=== PATIENT | female | born 1940 | race Caucasian/White ===

== ENCOUNTER 2019-07-22 14:04 | Outpatient (CLI) | payer MEDICARE, SELFPAY ==
--- NOTE | 2019-07-22 14:13 | CT_ITS ---
WS: [id number] CT CHEST WITHOUT INTRAVENOUS CONTRAST HISTORY: Chest pain with lung nodules. TECHNIQUE: Contiguous 5 mm axial imaging performed on the thorax. Coronal and sagittal reformats are submitted. All CT scans at [facility] use at least one of these dose optimization techniq ues: automated exposure control; mA and/or kV adjustment per patient size (includes targeted exams wh ere dose is matched to clinical indication); or iterative reconstruction. CONTRAST: None DLP: 569.01 mGycm COMPARISON: 01/23/2019 and 06/27/2018 Lungs and central airway: Marked pulmonary hyperexpansion. Biapical pleural and subpleural opacificat ions and scarring are stable. RIGHT upper lobe pleural-based opacification measures 2.1 x 1.0 cm and is similar to 01/15/2019 but has slightly increased in size since 12/06/2016. Pleura: Normal. No pleural effusion. Heart and pericardium: Normal size heart. No pericardial effusion. Mediastinum and ramin: No significant adenopathy is identified. Limited without IV contrast. Vessels: Mild atherosclerosis aorta. Pulmonary artery size is equal to the aorta. Chest wall and lower neck: No soft tissue masses. Upper abdomen: Hepatic and splenic granulomata. Limited evaluation without IV contrast. Osseous structures: T5 mild anterior wedging similar to prior studies. No osteoblastic or osteolytic bone disease. CT/CT chest wo con [id number] IMPRESSION: 1. Slight increase in size of the pleural-based opacification in the RIGHT upp er thorax. Now measuring 2.1 x 1.0 cm. This pleural-based opacification has bee n present over multiple years but only recently slightly increased in size. Rec ommend additional [address] follow-up or PET/CT imaging for further eval uation. 2. Emphysema and chronic upper lobe opacifications and pleural thickening are stable. 3. Hepatic and splenic granulomata. 4. Chronic emphysema.
== END 2019-07-22 14:05 | disposition home or self-care (01) ==
LOC: RADWPI 14:10
PROVIDERS: Family Provider Family Medicine; PCP Family Medicine; Visit Provider Family Medicine
DX: J43.9 Emphysema, unspecified (principal); K75.3 Granulomatous hepatitis, not elsewhere classified; R07.89 Other chest pain; R91.8 Other nonspecific abnormal finding of lung field
CPT/HCPCS: 71250

== ENCOUNTER 2019-07-25 08:09 | Outpatient (CLI) | payer MEDICARE, SELFPAY ==
[2019-07-25 08:36] VITALS: BMI 19.6
--- NOTE | 2019-07-25 08:47 | ECG_ITS ---
NAME OF STUDY: EXERCISE SESTAMIBI STRESS TEST INDICATION: Chest Pain Baseline blood pressure of 163/79 mm Hg, heart rate 82 beats per minute. EKG showed normal sinus rhythm, normal axis with possible old anteroseptal infarct. The patient exercised for 3 minutes 31 seconds on a standard Naveed protocol. Patient attained a maximum heart rate of 149 beats per minute(107 % of the maximum predicted heart rate) with a blood pressure at the peak exercise of 211/83 mm Hg. The EKG at the peak exercise revealed 2 to [address] segment depression in inferolateral leads. Patient did not have any chest pain or any significant arrhythmia with the exercise. During the recovery phase, there were no new changes. ST segment depression persist 6 minutes into recovery. Blood pressure at the end of the recovery phase was 174/83 mm Hg with a heart rate of 87 beats per minute. CONCLUSION: 1. Positive EKG response to treadmill exercise with 2 to [address] segment depression in inferolateral leads. 2. No exercise-induced chest pain or cardiac arrhythmia. 3. Fair exercise tolerance, attained a maximum of 4.6 METs. 4. Baseline hypertension blood pressure with hypertensive response to exercise. 5. Perfusion scan will be documented separately. Electronically Signed On 07-25-2019 16:50:43 [facility] by Tracey Hickman M.D. [email or web address]
--- NOTE | 2019-07-25 08:47 | NMCV_ITS ---
NM milad perf SPECT r/s* [id number] Georgette Ahn Age: 79 Gender: F : 1940 Exam Date: 07/25/2019 09:18 Ordering Phys: Néstor Morejon MD Technologist: UMM Hernandez Exam Location: [facility] Indications: CHEST PAIN STRESS TEST Please see separate stress test report in [facility] for full findings IMAGE PROTOCOL Rest/Stress 1 Exercise Day Radiopharmaceutical Dose (mCi) Administration Site Administered by Rest: Tc-99m 10.5 IV UMM Burton Sestamibi Stress:Tc-99m 32.5 IV UMM Burton Sestamibi Rest: 25-Jul-2019 60 Discovery 630 Stress: 25-Jul-2019 30 Discovery 630 Radiopharmaceutical was injected at 100% maximum heart rate. Images obtained in supine and prone position. SPECT RESULTS Technical Quality: Excellent Raw Data Analysis: Normal Image Corrections: No attenuation or motion correction applied Summed Stress Score: 0 Summed Rest Score: 0 Summed Difference Score: 0 PERFUSION FINDINGS Fairly uniform myocardial tracer uptake. No significant perfusion abnormalities. FUNCTIONAL RESULTS (calculated via Gated SPECT) Stress Image LV EF (%): 71 Stress EDV (mL):63 TID: 1.14 Stress ESV (mL):18 FUNCTIONAL FINDINGS: Segmental wall motion analysis revealing no gross wall motion normalities IMPRESSIONS #1. Unremarkable myocardial perfusion imaging #2. Normal LV ejection fraction 71%. #3. LV wall motion analysis revealing no gross wall motion normalities. #4. Normal LV volume No significant coronary ischemia, based on the above findings Dr Quentin Shaw MD FACC (Electronically Signed) Final Date: 25 July 2019 13:33 S
[2019-07-25 10:02] VITALS: BP 191/86; PULSE 100
== END 2019-07-25 08:10 | disposition home or self-care (01) ==
LOC: CDL 08:11
PROVIDERS: Family Provider Family Medicine; PCP Family Medicine; Visit Provider Family Medicine
DX: R07.89 Other chest pain (principal)
CPT/HCPCS: 78452; 93017; A9500

== ENCOUNTER 2020-07-28 11:12 | Emergency (ER) | payer MEDICARE, SELFPAY ==
--- NOTE | 2020-07-28 | CTR_ITS ---
PROCEDURE INFORMATION: Exam: CT Angiography Chest With Contrast Exam date and time: 07/28/2020 3:23 PM Age: 80 years old Clinical indication: Abnormal findings; Abnormal diagnostic tests; Elevated d-dimer; Fever and shortness of breath; Additional info: Covid + / high d-dimer TECHNIQUE: Imaging protocol: Computed tomographic angiography of the chest with contrast. 3D rendering (Not supervised by radiologist): MIP and/or 3D reconstructed images were created by the technologist. Total images: 814 Radiation optimization: All CT scans at this facility use at least one of these dose optimization techniques: automated exposure control; mA and/or kV adjustment per patient size (includes targeted exams where dose is matched to clinical indication); or iterative reconstruction. Contrast material: OMNI 350; Contrast volume: 68 ml; Contrast route: INTRAVENOUS (IV); COMPARISON: CT chest [facility] [id number] 07/22/2019 2:41 PM RADIATION DOSE METRICS: Total DLP (mGy-cm): 395.72 FINDINGS: Pulmonary arteries: No visible evidence of pulmonary embolism/pulmonary arterial thrombus. Aorta: The thoracic aorta is nonaneurysmal. No visible intimal flap or dissection. Moderate arterial sclerotic disease. Lungs: Bilateral, predominantly peripheral, patches of ground-glass interstitial lung disease with evidence of early consolidation of active pneumonitis/pneumonia. Pattern would be consistent with Covid-19 pneumonitis/pneumonia. Subsegmental compressive atelectasis left lower lobe. Pleural spaces: Moderate volume left pleural effusion. Heart: Cardiac size upper limits of normal. No visible pericardial effusion. Left ventricular prominence. Mild coronary artery disease. Lymph nodes: No visible active mediastinal or hilar lymphadenopathy. Calcified hilar and mediastinal complexes of antecedent granulomatous disease. Bones/joints: No visible active or acute osseous pathology. Mild scoliotic curvature of the spine. Age-appropriate degenerative disease of the spine. Soft tissues: Unremarkable for age. CT/CT angio chest PE protcl [id number] IMPRESSION: 1. No visible evidence of pulmonary embolism/pulmonary arterial thrombus. 2. Moderate volume left pleural effusion. 3. Bilateral, predominantly peripheral, patches of ground-glass interstitial lung disease with evidence of early consolidation of active pneumonitis/pneumonia. Pattern would be consistent with Covid-19 pneumonitis/pneumonia. 4. Subsegmental compressive atelectasis left lower lobe. Radiation Dose CTDIVOL = (mGy): DLP = 395.72 (mGy-cm)
[2020-07-28 11:38] VITALS: BP 146/66; PULSE 116; RESP 18; TEMP 37.2; O2SAT 95; BMI 20.3
--- NOTE | 2020-07-28 12:29 | XRR_ITS ---
PROCEDURE INFORMATION: Exam: XR Chest Exam date and time: 07/28/2020 12:52 PM Age: 80 years old Clinical indication: Condition or disease; Lung condition and disease; Pleural effusion; Other: Not specified; Fever and shortness of breath; Additional info: SOB TECHNIQUE: Imaging protocol: XR of the chest Views: 1 view. COMPARISON: CR XR chest 2V* [id number] 07/21/2020 10:26 AM FINDINGS: Lungs: COPD, interstitial prominence, and asymmetric left-sided airspace disease. Pleural spaces: Interval worsening in left pleural effusion. Heart/Mediastinum: Obscuration of the inferior left heart border. Bones/joints: Osteopenia, degenerative change, scoliosis. Costochondral calcifications. XR/XR chest 1V portable [id number] IMPRESSION: 1. COPD, interstitial prominence, and asymmetric left-sided airspace disease. 2. Interval worsening in left pleural effusion.
[2020-07-28 13:00] LABS: Hematocrit 39.3 % (37.0-47.0); Hemoglobin 12.5 g/dL (11.5-15.3); Lymphocytes # 0.4 10^3/uL (0.8-4.8); Lymphocytes % 9.7 %; Mean Corpuscular HGB Conc 31.8 g/dL (30.0-36.0); Mean Corpuscular Hemoglobin 30.5 pg (28.0-34.0); Mean Corpuscular Volume 95.9 fL (81-99); Mean Platelet Volume 9.7 fL (7.4-10.4); Monocytes # 0.8 10^3/uL (0.2-0.9); Neutrophils % 68.1 %; Nucleated Red Blood Cells % 0 %; Platelet Count 453 10^3/cmm (130-400); Red Cell Distribution Width 13.3 % (12.1-15.1); White Blood Count 4.1 10^3/uL (4.0-10.0)
[2020-07-28 13:20] LABS: D Dimer 5.13 ug/mIFEU (0-0.59)
[2020-07-28 13:24] LABS: Lactate (Lactic Acid level) 1.2 mmol/L (0.5-2.2)
[2020-07-28 13:33] LABS: Procalcitonin 0.05 ng/mL (0-0.5)
--- NOTE | 2020-07-28 13:36 | CT_ITS ---
WS: [id number] CT ABDOMEN AND PELVIS WITH CONTRAST HISTORY: sob, LEFT lower quadrant pain. TECHNIQUE: Imaging performed of the abdomen and pelvis with IV contrast. Single phase imaging of the abdomen. Coronal and sagittal reformats are submitted. All CT scans at [facility] use at least one of these dose optimization techniques: automated exposure control; mA and/or kV adjustment per patient size (includes targeted exams where dose is matched to clinical indication); or iterativ e reconstruction. IV CONTRAST: Omnipaque 300; 95 mL IV. Oral contrast: No DLP: 828.33 mGy.cm COMPARISON: None available. Lower thorax: Chronic emphysematous changes at the lung bases with minimal scattered opacifications. Small layering LEFT pleural effusion. Mildly enlarged heart. No hiatal hernia. Liver/biliary system: Hepatic granulomata. No mass or bile duct dilatation. Gallbladder: Normal. No gallstones or wall thickening. No pericholecystic fluid. Pancreas: Poorly visualized pancreas. Spleen: Granulomata. Normal size. Adrenal glands: Normal. Right kidney: Normal size kidney with an extrarenal pelvis. No mass or obstruction. Left kidney: Normal size kidney with a small extrarenal pelvis. No mass or obstruction. Aorta: Mild atherosclerosis with no aneurysm. Lymphadenopathy: No adenopathy identified. There is significant motion artifact obscuring fine detail . Free fluid: None. GI tract: Diffuse increased air throughout the GI tract. Mild constipation. There is significant cj on artifact limited evaluation of the mucosa. The appendix is not definitely visualized. There are nu merous diverticula in the sigmoid colon. Abdominal wall: Unremarkable abdominal wall. No hernia. Pelvis: No free fluid. Limited by motion. Well-distended urinary bladder. Bones: Bilateral hip joint arthritis. Moderate degenerative changes throughout the spine. CT/CT abdomen pelvis w con* [id number] IMPRESSION: 1. Study is compromised by motion artifact. 2. Small layering LEFT pleural effusion. 3. Sigmoid diverticulosis without evidence for acute diverticulitis. 4. Increased amount of air within the GI tract. Mild gastroenteritis should be considered.
[2020-07-28 13:44] LABS: Alanine Aminotransferase 21 U/L (0-33); Albumin Level 3.9 g/dL (3.5-5.2); Alkaline Phosphatase 78 IU/L (35-105); Anion Gap 14.1 (5-19); Aspartate Amino Transferase 22 U/L (0-32); Blood Urea Nitrogen 7 mg/dL (8-23); C Reactive Protein 37.9 mg/L (0.0-4.9); Calcium 9.2 mg/dL (8.5-10.5); Carbon Dioxide 30 mmol/L (22-29); Chloride 91 mmol/L (98-107); Globulin 3.8 g/dL (1.3-4.6); Glucose 105 mg/dL (65-115); Osmolality Calculated 270 mOsm/kg (285-295); Potassium 4.1 mmol/L (3.5-5.1); Sodium 131 mmol/L (136-145); Total Bilirubin 0.2 mg/dL (0.15-1.2); Total Protein 7.7 g/dL (6.6-8.7)
[2020-07-28 14:02] LABS: Influenza A by IFA Negative (Negative); Influenza B by IFA Negative (Negative); SARS Covid-2 Antigen Positive (Negative)
[2020-07-28] MEDS: iohexol 300 mg/mL 100 mL Btl IV (14:05)
[2020-07-28 14:25] VITALS: BP 110/59; PULSE 102; RESP 22; O2SAT 96
[2020-07-28 14:28] LABS: Add Urine Microscopic? NO
[2020-07-28 15:11] LABS: Bilirubin Urine Neg (Negative); Blood Urine Neg (Negative); Glucose Urine UA Norm (Normal); Ketones Urine Negative (Negative); Leukocyte Esterase Urine Negative (Negative); Nitrate Urine Negative (Negative); Protein Urine Neg (Negative); Specific Gravity, Urine 1.015 (1.005-1.030); Sulfosalicylic Acid Urine Negative (Negative); Urine Appearance Clear (CLEAR); Urine Color Yellow (Yellow); Urobilinogen Urine Norm (Negative); pH Urine 8 (5-7)
[2020-07-28] MEDS: iohexol 350 mg/mL 100 mL Btl IV (15:55)
--- NOTE | 2020-07-28 15:55 | W.ED.FEVER ---
HPI - Fever General: Chief Complaint: Fever Stated Complaint: fever/plural effusion/ Lt side pain Time Seen by Provider: 07/28/20 11:50 Source: patient and family Mode of arrival: ambulatory Limitations: no limitations History of Present Illness: HPI Narrative: This is an 80-year-old female patient who was recently admitted about 2-1/2 weeks ago to [facility] for pneumonia and pleural effusion. She was admitted for about 5 days and was treated with antibiotics. She also follows with the cocoa milling machine operator. Today she woke up with a fever 101 and has generalized body aches so she was advised to come to the emergency department for evaluation. She admits to some shortness of breath. MD elicited complaint: fever Onset (ago): hour(s) Associated symptoms: Reports short of breath; Deny abdominal pain, flank pain, chills, chest pain, confusion, cough, diarrhea, dysuria, extremity pain, headache(s), myalgias, nasal congestion, nausea, night sweats, rash, rhinorrhea, sinus pain, stiffness, sore throat, vaginal discharge, vomiting or weight loss Review of Systems General: Reports: 10 or more systems reviewed and unremarkable except in HPI and below Const: Denies: chills or night sweats Eyes: Denies: change in vision or blurry vision ENMT: Denies: nasal congestion or sinus pain Card: Denies: chest pain Resp: Denies: dyspnea, productive cough or non-productive cough GI: Denies: abdominal pain, nausea, vomiting or diarrhea : Denies: flank pain, dysuria or vaginal discharge Musc: Denies: extremity pain Skin/Breast: Denies: rash, pruritus or erythema Neuro: Denies: headache(s) or confusion Endo: Denies: polyuria, polydipsia or tired all the time [facility] ED PFSH: Social History Smoking and tobacco status: former smoker Quit status (tobacco): has quit using tobacco Physical Exam Const: COMMON NORMALS: no acute distress, average body habitus, patient oriented x3, no limitations, healthy appearing, alert and well nourished HENMT: COMMON NORMALS: normocephalic, atraumatic and moist oral mucous membranes HEAD & SCALP: normocephalic and atraumatic Neck/C-Spine: COMMON NORMALS: no meningeal signs and no JVD Chest: COMMONS NORMALS: normal inspection of the chest and normal palpation of entire chest wall Resp: COMMON NORMALS: normal respiratory effort, No retractions, No use of accessory muscles and percussion normal AUSCULTATION: rales on the left and diminished lung sounds on the left PERCUSSION: percussion normal Cardio: COMMON NORMALS: no JVD, regular rate, regular rhythm, S1 normal heart sound present, S2 normal heart sound present, No gallops present (Cardio), No clicks present (Cardio), No rub (Cardio) and Peripheral pulses 2+ throughout RATE: regular rate RHYTHM: regular rhythm HEART SOUNDS: S1 normal heart sound present, S2 normal heart sound present and Murmur heart sound present PERIPHERAL PULSES: Peripheral pulses 2+ throughout GI: COMMON NORMALS: Normal to inspection, nondistended, normoactive bowel sounds present, Soft to palpation, non-tender, No hepatosplenomegaly present, no masses and no bruits PALPATION: Yes Soft to palpation and Yes No hepatosplenomegaly present Extremity: COMMON NORMALS: normal to inspection, full ROM, capillary refill normal, no calf tenderness and no pedal edema Neuro: COMMON NORMALS: patient oriented x3 SENSORIUM/ORIENTATION: Yes alert MENINGEAL SIGNS: Yes no meningeal signs Skin: COMMON NORMALS: no rashes or lesions noted, no wounds, turgor normal, no jaundice, no petechiae and no mottling GENERAL SKIN EXAM: no rashes or lesions noted and turgor normal Course Reevaluation(s): Reevaluation #1: Discussed her lab and imaging findings with her, she tested positive for COVID-19, D-dimer significantly elevated but a CTA of her lungs was negative for PE. She does have left-sided pleural effusion and CT scan findings consistent with COVID-19. I discussed monoclonal antibody infusion with her, she recently was placed on oxygen and she increased her oxygen flow rate to 2 L/min. She is currently on 1 L/min but I discussed the risk and benefits of the monoclonal antibody infusion with her. At this time she decided against it. We will discharge her home with a prescription for dexamethasone. She voiced understanding and is in agreement with the plan. She will follow-up with her primary care provider and her cocoa milling machine operator. Time: 16:38 Vital Signs: Vital signs: Vital Signs Temperature 99.0 F 07/28/20 11:38 Pulse Rate 96 07/28/20 17:13 Respiratory Rate 18 07/28/20 17:13 Blood Pressure 150/56 07/28/20 17:13 Pulse Oximetry 90 07/28/20 17:13 MDM - Fever MDM Narrative: Medical decision making narrative: Patient is an 80-year-old female patient recently discharged from the hospital where she was managed as a case of pneumonia and pleural effusion. She presented to the emergency department with a fever and body aches. On testing in the emergency department she was diagnosed with COVID-19, and she does not qualify for monoclonal antibody infusion since she recently was placed on oxygen and increased her oxygen flow rate at home. In any case she declined it. She is discharged home with a prescription for oral dexamethasone. She will follow-up with her primary care provider and cocoa milling machine operator. Medical Records: Attestation: I reviewed the patient's medical records. Lab Data: Attestation: I reviewed the patient's lab results. Labs: Lab Results 07/28/20 07/28/20 07/28/20 Range/Units 12:38 12:38 12:40 WBC 4.1 (4.0-10.0) 10^3/ uL RBC 4.10 (4.1-5.3) 10^6/u L Hgb 12.5 (11.5-15.3) g/dL Hct 39.3 (37.0-47.0) % MCV 95.9 (81-99) fL MCH 30.5 (28.0-34.0) pg MCHC 31.8 (30.0-36.0) g/dL RDW 13.3 (12.1-15.1) % Plt Count 453 H (130-400) 10^3/c mm MPV 9.7 (7.4-10.4) fL Neut % (Auto) 68.1 % Lymph % (Auto) 9.7 % Churchill % (Auto) 20.0 % Eos % (Auto) 1.0 % Baso % (Auto) 1.0 % Neut # (Auto) 2.80 (1.8-7.7) 10^3/u L Lymph # (Auto) 0.4 L (0.8-4.8) 10^3/u L Churchill # (Auto) 0.8 (0.2-0.9) 10^3/u L Eos # (Auto) 0.0 (0.0-0.8) 10^3/u L Baso # (Auto) 0.0 (0.0-0.1) 10^3/u L Nucleated RBC % (a uto) 0 % Nucleated RBCs # 0.0 /100WBC D-Dimer (0-0.59) ug/mIFE U Sodium (136-145) mmol/L Potassium (3.5-5.1) mmol/L Chloride (98-107) mmol/L Carbon Dioxide (22-29) mmol/L Anion Gap (5-19) BUN (8-23) mg/dL Creatinine (0.5-0.9) mg/dL GFR Calculation Glucose (65-115) mg/dL Calculated Osmolal ity (285-295) mOsm/k g Lactate (0.5-2.2) mmol/L Calcium (8.5-10.5) mg/dL Total Bilirubin (0.15-1.2) mg/dL AST (0-32) U/L ALT (0-33) U/L Alkaline Phosphata se (35-105) IU/L C-Reactive Protein (0.0-4.9) mg/L Total Protein (6.6-8.7) g/dL Albumin (3.5-5.2) g/dL Globulin (1.3-4.6) g/dL Procalcitonin (0-0.5) ng/mL Urine Color (Yellow) Urine Appearance (CLEAR) Urine pH (5-7) Ur Specific Gravit y (1.005-1.030) Urine Protein (Negative) Urine Glucose (UA) (Normal) Urine Ketones (Negative) Urine Blood (Negative) Urine Nitrate (Negative) Urine Bilirubin (Negative) Prot Sulfosalicyli c Acd (Negative) Urine Urobilinogen (Negative) mg/dL Ur Leukocyte La ase (Negative) Influenza Type A A g Negative (Negative) Influenza Type B A g Negative (Negative) SARS-CoV-2 Ag (Rap id) Positive H (Negative) 07/28/20 07/28/20 07/28/20 Range/Units 12:40 12:40 12:40 WBC (4.0-10.0) 10^3/ uL RBC (4.1-5.3) 10^6/u L Hgb (11.5-15.3) g/dL Hct (37.0-47.0) % MCV (81-99) fL MCH (28.0-34.0) pg MCHC (30.0-36.0) g/dL RDW (12.1-15.1) % Plt Count (130-400) 10^3/c mm MPV (7.4-10.4) fL Neut % (Auto) % Lymph % (Auto) % Churchill % (Auto) % Eos % (Auto) % Baso % (Auto) % Neut # (Auto) (1.8-7.7) 10^3/u L Lymph # (Auto) (0.8-4.8) 10^3/u L Churchill # (Auto) (0.2-0.9) 10^3/u L Eos # (Auto) (0.0-0.8) 10^3/u L Baso # (Auto) (0.0-0.1) 10^3/u L Nucleated RBC % (a uto) % Nucleated RBCs # /100WBC D-Dimer 5.13 H (0-0.59) ug/mIFE U Sodium 131 L (136-145) mmol/L Potassium 4.1 (3.5-5.1) mmol/L Chloride 91 L (98-107) mmol/L Carbon Dioxide 30 H (22-29) mmol/L Anion Gap 14.1 (5-19) BUN 7 L (8-23) mg/dL Creatinine 0.5 (0.5-0.9) mg/dL GFR Calculation Not Reportable Glucose 105 (65-115) mg/dL Calculated Osmolal ity 270 L (285-295) mOsm/k g Lactate 1.2 (0.5-2.2) mmol/L Calcium 9.2 (8.5-10.5) mg/dL Total Bilirubin 0.2 (0.15-1.2) mg/dL AST 22 (0-32) U/L ALT 21 (0-33) U/L Alkaline Phosphata se 78 (35-105) IU/L C-Reactive Protein 37.9 H (0.0-4.9) mg/L Total Protein 7.7 (6.6-8.7) g/dL Albumin 3.9 (3.5-5.2) g/dL Globulin 3.8 (1.3-4.6) g/dL Procalcitonin 0.05 (0-0.5) ng/mL Urine Color (Yellow) Urine Appearance (CLEAR) Urine pH (5-7) Ur Specific Gravit y (1.005-1.030) Urine Protein (Negative) Urine Glucose (UA) (Normal) Urine Ketones (Negative) Urine Blood (Negative) Urine Nitrate (Negative) Urine Bilirubin (Negative) Prot Sulfosalicyli c Acd (Negative) Urine Urobilinogen (Negative) mg/dL Ur Leukocyte La ase (Negative) Influenza Type A A g (Negative) Influenza Type B A g (Negative) SARS-CoV-2 Ag (Rap id) (Negative) 07/28/20 Range/Units 14:22 WBC (4.0-10.0) 10^3/ uL RBC (4.1-5.3) 10^6/u L Hgb (11.5-15.3) g/dL Hct (37.0-47.0) % MCV (81-99) fL MCH (28.0-34.0) pg MCHC (30.0-36.0) g/dL RDW (12.1-15.1) % Plt Count (130-400) 10^3/c mm MPV (7.4-10.4) fL Neut % (Auto) % Lymph % (Auto) % Churchill % (Auto) % Eos % (Auto) % Baso % (Auto) % Neut # (Auto) (1.8-7.7) 10^3/u L Lymph # (Auto) (0.8-4.8) 10^3/u L Churchill # (Auto) (0.2-0.9) 10^3/u L Eos # (Auto) (0.0-0.8) 10^3/u L Baso # (Auto) (0.0-0.1) 10^3/u L Nucleated RBC % (a uto) % Nucleated RBCs # /100WBC D-Dimer (0-0.59) ug/mIFE U Sodium (136-145) mmol/L Potassium (3.5-5.1) mmol/L Chloride (98-107) mmol/L Carbon Dioxide (22-29) mmol/L Anion Gap (5-19) BUN (8-23) mg/dL Creatinine (0.5-0.9) mg/dL GFR Calculation Glucose (65-115) mg/dL Calculated Osmolal ity (285-295) mOsm/k g Lactate (0.5-2.2) mmol/L Calcium (8.5-10.5) mg/dL Total Bilirubin (0.15-1.2) mg/dL AST (0-32) U/L ALT (0-33) U/L Alkaline Phosphata se (35-105) IU/L C-Reactive Protein (0.0-4.9) mg/L Total Protein (6.6-8.7) g/dL Albumin (3.5-5.2) g/dL Globulin (1.3-4.6) g/dL Procalcitonin (0-0.5) ng/mL Urine Color Yellow (Yellow) Urine Appearance Clear (CLEAR) Urine pH 8 H (5-7) Ur Specific Gravit y 1.015 (1.005-1.030) Urine Protein Neg (Negative) Urine Glucose (UA) Norm (Normal) Urine Ketones Negative (Negative) Urine Blood Neg (Negative) Urine Nitrate Negative (Negative) Urine Bilirubin Neg (Negative) Prot Sulfosalicyli c Acd Negative (Negative) Urine Urobilinogen Norm (Negative) mg/dL Ur Leukocyte La ase Negative (Negative) Influenza Type A A g (Negative) Influenza Type B A g (Negative) SARS-CoV-2 Ag (Rap id) (Negative) Imaging Data^: CT Abd/Pel: Attestation: I personally reviewed and interpreted this imaging study as follows: Radiologist's impression: [address] [address] [address] Scan Report Signed Patient: Georgette Ahn #: [id number] : 1940Acct#:[id number] Age/Sex: 80 / FADM Date: 07/28/20 Loc: ERRoom/Bed: Attending Dr: Ordering Provider/Ordering MD: Zahraa Camejo MD, [facility] Date of Service: 07/28/20 Procedure(s): CT abdomen pelvis w con* [id number] Accession Number(s): [id number] Report Number: [id number] WS: [id number] CT ABDOMEN AND PELVIS WITH CONTRAST HISTORY: sob, LEFT lower quadrant pain. TECHNIQUE: Imaging performed of the abdomen and pelvis with IV contrast. Single phase imaging of the abdomen. Coronal and sagittal reformats are submitted. All CT scans at [facility] use at least one of these dose optimization techniques: automated exposure control; mA and/or kV adjustment per patient size (includes targeted exams where dose is matched to clinical indication); or iterative reconstruction. IV CONTRAST: Omnipaque 300; 95 mL IV. Oral contrast: No DLP: 828.33 mGy.cm COMPARISON: None available. Lower thorax: Chronic emphysematous changes at the lung bases with minimal scattered opacifications. Small layering LEFT pleural effusion. Mildly enlarged heart. No hiatal hernia. Liver/biliary system: Hepatic granulomata. No mass or bile duct dilatation. Gallbladder: Normal. No gallstones or wall thickening. No pericholecystic fluid. Pancreas: Poorly visualized pancreas. Spleen: Granulomata. Normal size. Adrenal glands: Normal. Right kidney: Normal size kidney with an extrarenal pelvis. No mass or obstruction. Left kidney: Normal size kidney with a small extrarenal pelvis. No mass or obstruction. Aorta: Mild atherosclerosis with no aneurysm. Lymphadenopathy: No adenopathy identified. There is significant motion artifact obscuring fine detail. Free fluid: None. GI tract: Diffuse increased air throughout the GI tract. Mild constipation. There is significant motion artifact limited evaluation of the mucosa. The appendix is not definitely visualized. There are numerous diverticula in the sigmoid colon. Abdominal wall: Unremarkable abdominal wall. No hernia. Pelvis: No free fluid. Limited by motion. Well-distended urinary bladder. Bones: Bilateral hip joint arthritis. Moderate degenerative changes throughout the spine. CT/CT abdomen pelvis w con* [id number] IMPRESSION: 1. Study is compromised by motion artifact. 2. Small layering LEFT pleural effusion. 3. Sigmoid diverticulosis without evidence for acute diverticulitis. 4. Increased amount of air within the GI tract. Mild gastroenteritis should be considered. Dictated By:Keena Magaña DO Signed By:Keena Magaña DOSigned Date/Time:07/28/20 1421 DD/ 1416 CTA Chest: Attestation: I personally reviewed and interpreted this imaging study as follows: Radiologist's impression: [address] [place] [address] CT Scan Report Signed Patient: Georgette Ahn #: [id number] : 1940Acct#:[id number] Age/Sex: 80 / FADM Date: 07/28/20 Loc: ERRoom/Bed: Attending Dr: Ordering Provider/Ordering MD: Zahraa Camejo MD, [facility] Date of Service: 07/28/20 Procedure(s): CT angio chest PE protcl [id number] Accession Number(s): [id number] Report Number: [id number] PROCEDURE INFORMATION: Exam: CT Angiography Chest With Contrast Exam date and time: 07/28/2020 3:23 PM Age: 80 years old Clinical indication: Abnormal findings; Abnormal diagnostic tests; Elevated d-dimer; Fever and shortness of breath; Additional info: Covid + / high d-dimer TECHNIQUE: Imaging protocol: Computed tomographic angiography of the chest with contrast. 3D rendering (Not supervised by radiologist): MIP and/or 3D reconstructed images were created by the technologist. Total images: 814 Radiation optimization: All CT scans at this facility use at least one of these dose optimization techniques: automated exposure control; mA and/or kV adjustment per patient size (includes targeted exams where dose is matched to clinical indication); or iterative reconstruction. Contrast material: OMNI 350; Contrast volume: 68 ml; Contrast route: INTRAVENOUS (IV); COMPARISON: CT chest [facility] [id number] 07/22/2019 2:41 PM RADIATION DOSE METRICS: Total DLP (mGy-cm): 395.72 FINDINGS: Pulmonary arteries: No visible evidence of pulmonary embolism/pulmonary arterial thrombus. Aorta: The thoracic aorta is nonaneurysmal. No visible intimal flap or dissection. Moderate arterial sclerotic disease. Lungs: Bilateral, predominantly peripheral, patches of ground-glass interstitial lung disease with evidence of early consolidation of active pneumonitis/pneumonia. Pattern would be consistent with Covid-19 pneumonitis/pneumonia. Subsegmental compressive atelectasis left lower lobe. Pleural spaces: Moderate volume left pleural effusion. Heart: Cardiac size upper limits of normal. No visible pericardial effusion. Left ventricular prominence. Mild coronary artery disease. Lymph nodes: No visible active mediastinal or hilar lymphadenopathy. Calcified hilar and mediastinal complexes of antecedent granulomatous disease. Bones/joints: No visible active or acute osseous pathology. Mild scoliotic curvature of the spine. Age-appropriate degenerative disease of the spine. Soft tissues: Unremarkable for age. CT/CT angio chest PE protcl [id number] IMPRESSION: 1. No visible evidence of pulmonary embolism/pulmonary arterial thrombus. 2. Moderate volume left pleural effusion. 3. Bilateral, predominantly peripheral, patches of ground-glass interstitial lung disease with evidence of early consolidation of active pneumonitis/pneumonia. Pattern would be consistent with Covid-19 pneumonitis/pneumonia. 4. Subsegmental compressive atelectasis left lower lobe. Radiation Dose CTDIVOL = (mGy): DLP = 395.72 (mGy-cm) Dictated By:Guido Hurt Signed By:Nnamdi Hurt Date/Time:07/28/201615 DD/ 1614 CXR: Attestation: I personally reviewed and interpreted this imaging study as follows: Radiologist's impression: [address] [address] XRay Report Signed Patient: Georgette Ahn #: [id number] : 1940Acct#:[id number] Age/Sex: 80 / FADM Date: 07/28/20 Loc: ERRoom/Bed: Attending Dr: Ordering Provider/Ordering MD: Zahraa Camejo MD, [facility] Date of Service: 07/28/20 Procedure(s): XR chest 1V portable [id number] Accession Number(s): [id number] Report Number: [id number] PROCEDURE INFORMATION: Exam: XR Chest Exam date and time: 07/28/2020 12:52 PM Age: 80 years old Clinical indication: Condition or disease; Lung condition and disease; Pleural effusion; Other: Not specified; Fever and shortness of breath; Additional info: SOB TECHNIQUE: Imaging protocol: XR of the chest Views: 1 view. COMPARISON: CR XR chest 2V* [id number] 07/21/2020 10:26 AM FINDINGS: Lungs: COPD, interstitial prominence, and asymmetric left-sided airspace disease. Pleural spaces: Interval worsening in left pleural effusion. Heart/Mediastinum: Obscuration of the inferior left heart border. Bones/joints: Osteopenia, degenerative change, scoliosis. Costochondral calcifications. XR/XR chest 1V portable [id number] IMPRESSION: 1. COPD, interstitial prominence, and asymmetric left-sided airspace disease. 2. Interval worsening in left pleural effusion. Dictated By:Naveed Carolina MD Signed By:Naveed Carolina MDSigned Date/Time:07/28/20 1320 DD/ 1319 Discharge Plan Discharge Patient Disposition: Home Clinical Impression: Pneumonia due to 2019 novel coronavirus, Pleural effusion Condition: Stable Prescriptions: New dexamethasone 6 mg tablet 6 mg PO DAILY Qty: 10 RF: 0 Continued multivitamin Tablet 1 tab PO DAILY RF: 0 Tylenol 325 mg Tablet 650 mg PO PRN RF: 0 Vitamin D3 25 mcg (1,000 unit) Capsule 25 mcg PO DAILY RF: 0 magnesium 200 mg Tablet 200 mg PO BID RF: 0 potassium gluconate 595 mg (99 mg) Tablet 99 mg PO BID RF: 0 Silica Caps 2 cap PO BID RF: 0 biotin 1 cap PO DAILY RF: 0 zinc 1 cap PO DAILY RF: 0 Discharge Orders: Discharge ED (Routine); Ordered 07/28/20 Ordered By: Zahraa Camejo Referrals: Néstor Morejon MD [Primary Care Provider] - 1-3 days Patient Instructions: Viral Pneumonia (ED) Activity Restrictions/Additional Instructions: Return for any new or worsening symptoms. Follow-up with your primary care provider/cocoa milling machine operator via telemedicine within 3 days. Take the medication as prescribed. If your oxygen levels drop or you are requiring more oxygen, or your symptoms worsen in any way including difficulty breathing, please return for evaluation as you may need to be admitted to the hospital. Coding Level of Care Code ED Embedded Software Developer for [employer] Fwd Exam Comprehensive
[2020-07-28 16:09] VITALS: BP 143/72; PULSE 88; RESP 28; O2SAT 100
[2020-07-28] MEDS: dexamethasone 4 mg/mL INJ 6 MG IVP (17:05)
[2020-07-28 17:13] VITALS: BP 150/56; PULSE 96; RESP 18; O2SAT 90
[2020-07-29 14:07] LABS: Coronavirus Test Green County Detected
--- NOTE | 2020-07-29 16:20 | PC.NURSE ---
Patient notified of COVID results at this time.
== END 2020-07-28 17:14 | disposition home or self-care (01) ==
PROVIDERS: Emergency Provider Family Medicine; PCP Family Medicine
DX: U07.1 COVID-19 (principal); J12.82 Pneumonia due to coronavirus disease 2019; J90 Pleural effusion, not elsewhere classified; Z87.891 Personal history of nicotine dependence
CPT/HCPCS: 36415; 71045; 71275; 74177; 80053; 81003; 83605; 84145; 85025; 85378; 86140; 87040; 87426; 87635; 87804; 96374; 99284; J1100; Q9967

== ENCOUNTER 2020-08-10 16:48 | Outpatient (CLI) | payer MEDICARE, SELFPAY ==
[2020-08-10 19:40] LABS: D Dimer 1.89 ug/mIFEU (0-0.59)
== END 2020-08-10 16:49 | disposition home or self-care (01) ==
PROVIDERS: PCP Family Medicine; Visit Provider Nurse Practitioner Family
DX: R06.02 Shortness of breath (principal)
CPT/HCPCS: 85378

== ENCOUNTER 2020-08-11 18:21 | Outpatient (CLI) | payer MEDICARE, SELFPAY ==
--- NOTE | 2020-08-11 | CTR_ITS ---
PROCEDURE INFORMATION: Exam: CT Angiography Chest With Contrast Exam date and time: 08/11/2020 7:49 PM Age: 80 years old Clinical indication: Abnormal findings; Abnormal diagnostic tests; Elevated d-dimer; Shortness of breath; Patient HX: Call report to Dr [phone]; Additional info: SOB, elevated d-dimer TECHNIQUE: Imaging protocol: Computed tomographic angiography of the chest with contrast. 3D rendering (Not supervised by radiologist): MIP and/or 3D reconstructed images were created by the technologist. Total images: 799 Radiation optimization: All CT scans at this facility use at least one of these dose optimization techniques: automated exposure control; mA and/or kV adjustment per patient size (includes targeted exams where dose is matched to clinical indication); or iterative reconstruction. Contrast material: OMNI 350; Contrast volume: 65 ml; Contrast route: INTRAVENOUS (IV); COMPARISON: CT angio chest PE protcl [id number] 07/28/2020 4:06 PM RADIATION DOSE METRICS: Total DLP (mGy-cm): 359.18 FINDINGS: Pulmonary arteries: Examination is positive for pulmonary arterial thrombus/pulmonary embolism. Nonocclusive string thrombus left lower lobe medial basal and posterior basal segments to include distal segmental and subsegmental occlusion of the lateral basal segment pulmonary arteries. No visible central pulmonary embolism. Distal occlusive thrombus anterior basal subsegmental vessel right lower lobe. No visible right ventricular strain. Aorta: The thoracic aorta is nonaneurysmal. No visible intimal flap or dissection. Moderate arterial sclerotic disease. Lungs: Again note of bilateral, predominantly peripheral, patches of ground-glass interstitial lung disease with evidence of early consolidation, particularly in the lung apices, of active pneumonitis/pneumonia. Pattern would be consistent with Covid-19 pneumonitis/pneumonia. Pleural spaces: Small volume left pleural effusion that has decreased in size since last evaluation of 07/28/2020. No visible right pleural effusion. Heart: Cardiac size upper limits of normal. Left ventricular prominence. No visible pericardial effusion. Mild coronary artery disease. Lymph nodes: No findings raising suspicion for active mediastinal or hilar lymphadenopathy. Calcified complexes of antecedent granulomatous disease. Bones/joints: No visible active or acute osseous pathology. Mild scoliotic curvature of the spine. Age-appropriate degenerative disease of the spine. Old mild superior endplate deformity T 5. Soft tissues: Unremarkable for age. CT/CT angio chest PE protcl [id number] IMPRESSION: 1. Examination is positive for pulmonary arterial thrombus/pulmonary embolism involving a small volume of bilateral lower lobe segmental and subsegmental vessels as detailed in text above. 2. No right ventricular strain. 3. Again note of bilateral, predominantly peripheral, patches of ground-glass interstitial lung disease with evidence of early consolidation, particularly in the lung apices, of active pneumonitis/pneumonia. Pattern would be consistent with Covid-19 pneumonitis/pneumonia. 4. Small volume left pleural effusion is decreased in size since last evaluation. Radiation Dose CTDIVOL = (mGy): DLP = 359.18 (mGy-cm)
[2020-08-11 18:30] VITALS: BP 139/63; PULSE 88; RESP 20; TEMP 36.9; O2SAT 97; BMI 19.5
== END 2020-08-11 20:10 | disposition home or self-care (01) ==
LOC: ER 18:51 → RAD 19:05
PROVIDERS: Emergency Provider Emergency Medicine; PCP Physician Assistant; Visit Provider Family Medicine
DX: R06.02 Shortness of breath (principal); J90 Pleural effusion, not elsewhere classified
CPT/HCPCS: 71275; Q9967

== ENCOUNTER → 2020-11-05 14:55 | Outpatient (BNVA) | payer MEDICARE, SELFPAY | PROVIDERS: PCP Physician Assistant; Visit Provider Internal Medicine Pulmonary Disease | DX: J43.2 Centrilobular emphysema (principal); Z20.822 Contact with and (suspected) exposure to COVID-19 | CPT/HCPCS: 87635 ==

== ENCOUNTER 2020-11-10 13:16 | Outpatient (CLI) | payer MEDICARE, SELFPAY ==
--- NOTE | 2020-11-10 13:46 | PFTS_ITS ---
Date of Study:11/10/20 Date of Dictation: 11/17/20 MECHANICS: Post bronchodilator Forced vital capacity (FVC) is normal . Post bronchodilator Forced expiratory volume in one second (FEV1) is normal. FEV1/FVC is significantly normal. There is no significant response to bronchodilators . FLOW VOLUME LOOP: normal. . LUNG VOLUMES: Total lung capacity (TLC) is normal. Residual volume (RV) is normal. . DIFFUSING CAPACITY FOR CARBON MONOXIDE: normal . INTERPRETATION: The pulmonary function tests are normal. . MTDD
== END 2020-11-10 13:17 | disposition home or self-care (01) ==
LOC: RT 13:23
PROVIDERS: PCP Physician Assistant; Visit Provider Internal Medicine Pulmonary Disease
DX: J43.2 Centrilobular emphysema (principal)
CPT/HCPCS: 94060; 94726; 94729; J7611

== ENCOUNTER 2021-03-30 10:38 | Outpatient (CLI) | payer MEDICARE, SELFPAY ==
--- NOTE | 2021-03-30 10:45 | CT_ITS ---
WS: [id number] CT CHEST NONCONTRAST INTRAVENOUS CONTRAST HISTORY: Lung Lesion TECHNIQUE: Contiguous 5 mm axial imaging performed on the thorax. Coronal and sagittal reformats are submitted. All CT scans at [facility] use at least one of these dose optimization techniques: automated exposure control; mA and/or kV adjustment per patient size (includes targeted exams where dose is matched to clinical indication); or iterative reconstruction. CONTRAST: None DLP: 547.51 mGycm COMPARISON: 08/11/2020 Lungs and central airway: Moderate improvement in the bilateral irregular opacifications throughout b oth lungs. Only the upper lung field opacifications remain. Overall the scattered opacifications have improved. Lung bases are clear. Pleura: Normal. No pleural effusion. Heart and pericardium: Mild enlargement of the heart. Mediastinum and ramin: Mediastinum is difficult to evaluate for adenopathy without IV contrast. No lym ph nodes are identified of any concerns. Vessels: Mild atherosclerosis aorta. Dilated pulmonary artery. Tracheal calcification is also noted. Chest wall and lower neck: No soft tissue masses. Upper abdomen: Hepatic and splenic granulomata. Heavy calcification within the suprarenal aorta. Osseous structures: Mild anterior wedging of T5. CT/CT chest wo con [id number] IMPRESSION: 1. 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 As compared to there has been a moderate improvement in aeration and resolving opacif ications. 2. Pulmonary hypertension. 3. Moderate atherosclerosis aorta. 4. Cannot exclude adenopathy without IV contrast. 5. Hepatic and splenic granulomata.
== END 2021-03-30 10:39 | disposition home or self-care (01) ==
PROVIDERS: PCP Physician Assistant; Visit Provider Internal Medicine Pulmonary Disease
DX: R91.1 Solitary pulmonary nodule (principal); I27.20 Pulmonary hypertension, unspecified; I70.0 Atherosclerosis of aorta
CPT/HCPCS: 71250